=== PATIENT | female | born 1985 ===

== ENCOUNTER 2020-04-22 12:09 | Emergency (ER) | payer SELFPAY ==
--- NOTE | 2020-04-22 12:28 | EDM.PDOC ---
ED HPI GENERAL MEDICAL PROBLEM - General Stated Complaint: ABDOMINAL PAIN Time Seen by Provider: 04/22/20 12:15 Source of Information: Reports: Patient History Limitations: Reports: No Limitations - History of Present Illness INITIAL COMMENTS - FREE TEXT/NARRATIVE: Patient comes emergency department today with complaints of left lower quadrant and flank pain. Since about 10:00 this morning this patient has had waxing and waning pain in the left lower quadrant left flank region. She did have a bowel movement but the pain did not get any better. She is 6 para 4. Her last menstrual cycle was 710 and she had a positive test on 84. She has no fever no chills. She has no other pain in her abdomen. No nausea no vomiting. No weakness dizziness lightheadedness. No hematuria dysuria or urinary frequency. No constipation or diarrhea. No vaginal bleeding discharge. She has had 2 miscarriages in the past no history of ectopic pregnancies. He came to the emergency department because her OB in [place] directed her to the ER to get an ultrasound to ensure that she does not have ectopic . - Related Data Allergies Allergy/AdvReac Type Severity Reaction Status Date / Time codeine AdvReac Vomiting Verified 04/22/20 12:18 hydrocodone AdvReac Dizziness Verified 04/22/20 12:18 Home Meds: Home Meds Metoclopramide HCl 10 mg PO TID 04/22/20 [History] ED ROS GENERAL - Review of Systems Review Of Systems: Comprehensive ROS is negative, except as noted in HPI. ED EXAM, GI/ABD - Physical Exam Exam: See Below Exam Limited By: No Limitations General Appearance: Alert, WD/WN, Mild Distress Ears: Normal External Exam Nose: Normal Inspection Throat/Mouth: Normal Inspection Head: Atraumatic, Normocephalic Neck: Normal Inspection, Supple Respiratory/Chest: No Respiratory Distress, Lungs Clear, Normal Breath Sounds Cardiovascular: Normal Peripheral Pulses, Regular Rate, Rhythm GI/Abdominal Exam: Normal Bowel Sounds, Soft, No Organomegaly, No Distention, No Abnormal Bruit, Guarding (Left lower quadrant), Tender (Left lower quadrant). No: Rigid, Rebound (Female) Exam: Deferred Rectal (Female) Exam: Deferred Back Exam: Normal Inspection, Full Range of Motion. No: CVA Tenderness (L), CVA Tenderness (R) Extremities: Normal Inspection, Normal Range of Motion Neurological: Alert, Oriented, Normal Cognition, No Motor/Sensory Deficits Psychiatric: Normal Affect, Normal Mood Skin Exam: Warm, Dry, Intact, Normal Color Course - Orders/Labs/Meds Orders: Active Orders 24 hr Category Date Time Status BASIC METABOLIC PANEL,BMP [CHEM] Stat Lab 04/22/20 12:15 Ordered CBC WITH AUTO DIFF [HEME] Stat Lab 04/22/20 12:15 Ordered DRUG SCREEN, URINE [URCHEM] Stat Lab 04/22/20 12:16 Ordered HCG QUALITATIVE,URINE [URCHEM] Stat Lab 04/22/20 12:16 Ordered UA RFX KWAN AND CULT IF INDIC [URIN] Stat Lab 04/22/20 12:16 Ordered - Re-Assessments/Exams Free Text/Narrative Re-Assessment/Exam: 04/22/20 12:31 I offered the patient an IV for pain management laboratory evaluation and urinalysis. I did make her aware that not only are we unable to do even a quantitative hCG we do not have any ultrasound capability and the biggest concern at this time would be an ectopic . I may be able to rule in or out some other issues but I will not be able to verify that this is not an ectopic . I would like to plan to transfer her to [facility] in [place]. She does not want to wait she just wants to go on her own. I explained to her that there is a high risk if this is an ectopic of hemorrhage into the abdominal cavity which can be life-threatening. There may other pathology that is going on that we could intervene in earlier but she does not want a wait. She does not want an IV she does not want lab draw and she just wants to get in the car with her . She wants to leave AGAINST MEDICAL ADVICE. Risk of from ectopic were explained not only to the patient as well as her such other risk factors are not limited to ectopic but could be septic pyelonephritis bowel obstruction etc. all which could lead to . She is understanding this. The risk of without any evaluation or being sent by ambulance. She signed the AMA paperwork and left with her . Departure - Departure Time of Disposition: 12:22 Disposition: Against Medical Advice 07 Clinical Impression: Qualifiers: Weeks of gestation: unspecified Qualified Code(s): Z34.90 - Encounter for supervision of normal , unspecified, unspecified trimester Abdominal pain Qualifiers: Abdominal location: left lower quadrant Qualified Code(s): R10.32 - Left lower quadrant pain - Discharge Information *PRESCRIPTION DRUG MONITORING PROGRAM REVIEWED*: Not Applicable *COPY OF PRESCRIPTION DRUG MONITORING REPORT IN PATIENT KA[facility]IL: Not Applicable Additional Instructions: YOu have chosen to leave AMA against my medical advice with the understanding of risk from bleeding and from a possible ectopic . Do not eat your drink anything as you leave here to go to [facility] ED as per your want and request. If any concerns enroute call 911. - My Orders Last 24 Hours: My Active Orders 04/22/20 12:15 BASIC METABOLIC PANEL,BMP [CHEM] Stat CBC WITH AUTO DIFF [HEME] Stat 04/22/20 12:16 DRUG SCREEN, URINE [URCHEM] Stat HCG QUALITATIVE,URINE [URCHEM] Stat UA RFX KWAN AND CULT IF INDIC [URIN] Stat - Assessment/Plan Last 24 Hours: My Active Orders 04/22/20 12:15 BASIC METABOLIC PANEL,BMP [CHEM] Stat CBC WITH AUTO DIFF [HEME] Stat 04/22/20 12:16 DRUG SCREEN, URINE [URCHEM] Stat HCG QUALITATIVE,URINE [URCHEM] Stat UA RFX KWAN AND CULT IF INDIC [URIN] Stat
== END 2020-04-22 12:30 | disposition left against medical advice (07) ==
LOC: VM.ED 12:09
DX: O99.89 Other specified diseases and conditions complicating pregnancy, childbirth and the puerperium (principal); R10.32 Left lower quadrant pain; Z88.5 Allergy status to narcotic agent
CPT/HCPCS: 99284